=== PATIENT | female | born 1975 | race Two or more races ===

== ENCOUNTER 2020-12-20 10:50 | Inpatient (IN) | payer OTHER ==
[~2020-12-20] VITALS: Ht 160 cm; Wt 104.3 kg
[2020-12-20] MEDS ORDERED: PEPCID AC20 MG (11:14)
[2020-12-20] MEDS ORDERED: FOLIC ACID1 MG (11:14)
[2020-12-20] MEDS ORDERED: AZOR 5-20 MG T1 EACH (11:14)
[2020-12-20] MEDS ORDERED: ATORVASTATIN CA80 MG (11:15)
[2020-12-20] MEDS ORDERED: ECOTRIN81 MG (11:15)
[2020-12-20] MEDS ORDERED: PLAVIX75 MG (11:15)
[2020-12-21] MEDS ORDERED: ALPHAGAN P5 M2 (14:45)
[2020-12-21] MEDS ORDERED: LOPRESSOR25 MG (14:46)
[2020-12-21] MEDS ORDERED: GABAPENTIN400 MG (14:46)
[2020-12-21] MEDS ORDERED: LISINOPRIL10 MG (14:46)
[2020-12-21] MEDS ORDERED: FERROUS SULFAT325 MG (14:46)
[2020-12-21] MEDS ORDERED: AMLODIPINE BESYL5 MG (14:46)
[2020-12-21] MEDS ORDERED: ILEVRO3 ML (14:46)
[2020-12-21] MEDS ORDERED: MAXIMUM D3325 MCG (14:46)
[2020-12-21] MEDS ORDERED: LOSARTAN POTASS50 MG (14:47)
[2020-12-21] MEDS ORDERED: HUMULIN N100 UNIT/2 (14:47)
[2021-01-04] MEDS ORDERED: LIPITOR40 MG PO (14:10)
[2021-01-04] MEDS ORDERED: LINEZOLID600 MG PO (14:10)
[2021-01-04] MEDS ORDERED: CLOPIDOGREL BIS75 MG PO (14:10)
[2021-01-04] MEDS ORDERED: FOLIC ACID1 MG PO (14:10)
[2021-01-04] MEDS ORDERED: APRESOLINE 10MG10 MG PO (14:10)
[2021-01-04] MEDS ORDERED: INTESTINEX680 M1 PO (14:10)
[2021-01-04] MEDS ORDERED: Lantus 1000 UNITS/10 SUBCUTANEO (14:10)
[2021-01-04] MEDS ORDERED: Neurin-Sl Tablet Sl SL (14:10)
[2021-01-04] MEDS ORDERED: NORVASC2.5 M1 PO (14:10)
[2021-01-04] MEDS ORDERED: BENADRYL25 MG PO (14:10)
== END 2021-01-04 22:00 | disposition home health service (06) | DRG 256 ==
LOC: ER 10:50 → SEC-K 17:37 → MEDJ 17:37
PROVIDERS: Surgery; ADMIT Internal Medicine; ATTEND Internal Medicine
PROC: 8E0ZXY6 Isolation (ICD-10-PCS; 2020-12-20)
PROC: 30233N1 Transfusion of Nonautologous Red Blood Cells into Peripheral Vein, Percutaneous Approach (ICD-10-PCS; 2020-12-20)
PROC: 0Y6Y0Z0 Detachment at Left 5th Toe, Complete, Open Approach (ICD-10-PCS; 2020-12-24)
PROC: 0JBP0ZZ Excision of Left Lower Leg Subcutaneous Tissue and Fascia, Open Approach (ICD-10-PCS; 2020-12-24)
PROC: 06HM33Z Insertion of Infusion Device into Right Femoral Vein, Percutaneous Approach (ICD-10-PCS; 2020-12-24)
PROC: 0Y6W0Z0 Detachment at Left 4th Toe, Complete, Open Approach (ICD-10-PCS; principal; 2020-12-24 13:45)
PROC: B44HZZZ Ultrasonography of Bilateral Lower Extremity Arteries (ICD-10-PCS; 2020-12-28)
PROC: 0KBW0ZZ Excision of Left Foot Muscle, Open Approach (ICD-10-PCS; 2020-12-30)
DX: E11.52 Type 2 diabetes mellitus with diabetic peripheral angiopathy with gangrene (principal); N17.8 Other acute kidney failure; L97.528 Non-pressure chronic ulcer of other part of left foot with other specified severity; N18.4 Chronic kidney disease, stage 4 (severe); L03.116 Cellulitis of left lower limb; Z16.12 Extended spectrum beta lactamase (ESBL) resistance; L97.423 Non-pressure chronic ulcer of left heel and midfoot with necrosis of muscle; E11.65 Type 2 diabetes mellitus with hyperglycemia; Z79.4 Long term (current) use of insulin; I12.9 Hypertensive chronic kidney disease with stage 1 through stage 4 chronic kidney disease, or unspecified chronic kidney disease; D63.1 Anemia in chronic kidney disease; B95.62 Methicillin resistant Staphylococcus aureus infection as the cause of diseases classified elsewhere; E11.21 Type 2 diabetes mellitus with diabetic nephropathy; E11.621 Type 2 diabetes mellitus with foot ulcer; E11.610 Type 2 diabetes mellitus with diabetic neuropathic arthropathy; B96.20 Unspecified Escherichia coli [E. coli] as the cause of diseases classified elsewhere; I87.8 Other specified disorders of veins